=== PATIENT | female | born 1955 | race Caucasian/White ===

== ENCOUNTER → 2016-11-12 | Outpatient (CLI) | payer BC ==
--- NOTE | 2016-11-12 17:16 | Diagnostic Imaging Report ---
Bilateral screening mammogram. The current study was also evaluated with a Computer Aided Detection (CAD) system. INDICATION: Screening. No current complaints stated on the questionnaire. COMPARISON: 05/26/2016. FINDINGS: The breasts are composed of heterogeneously dense parenchyma which may decrease mammographic sensitivity. There are scattered benign-appearing calcifications. There is a 7 mm asymmetry along the superior aspect of the left MLO view. No definite correlate on the CC projection is seen. The right breast demonstrates no definite change. IMPRESSION: Dense breasts. Asymmetry along the upper aspect of the left MLO is seen. Focal compression view evaluation and bilateral ultrasound is recommended. ACR BI-RADS Category 0: Incomplete. (Needs additional imaging evaluation). Result letter will be mailed to the patient. Note: At least 10% of breast cancer is not imaged by mammography. Dictated by: Dictated on workstation # [id number]
== END ==
LOC: RAD 09:19
PROVIDERS: ATTEND Obstetrics & Gynecology Gynecology
DX: Z12.31 Encounter for screening mammogram for malignant neoplasm of breast (principal)
CPT/HCPCS: 77067

== ENCOUNTER → 2016-12-03 | Outpatient (CLI) | payer BC ==
--- NOTE | 2016-12-03 08:48 | Diagnostic Imaging Report ---
Left breast diagnostic mammogram. CAD is utilized. COMPARISON: 11/12/2016. FINDINGS: Focal compression view for asymmetry in the upper aspect of the left breast demonstrates dense background parenchyma with no definitive underlying mass. IMPRESSION: Dense background parenchyma with no definitive underlying lesion seen. Ultrasound evaluation pending. ACR BI-RADS Category 0: Incomplete. (Needs additional imaging evaluation). Result letter will be mailed to the patient. Note: At least 10% of breast cancer is not imaged by mammography. Dictated by: Dictated on workstation # [id number]
--- NOTE | 2016-12-03 10:18 | Diagnostic Imaging Report ---
EXAMINATION: Bilateral breast ultrasound. INDICATION: Dense breasts. Asymmetry in the upper aspect of the left breast. FINDINGS: The retroareolar region and four quadrants of each breast were scanned. At the 3 o'clock zone 2 cm from the nipple, there is a small simple appearing cyst measuring 4 mm without change from the November 2015 exam. There is mild ductal ectasia also seen in the retroareolar region of the left breast. The right breast demonstrates no significant abnormality. IMPRESSION: No suspicious lesion. The asymmetry seen on mammography appears to relate to summation artifact of parenchyma. Annual screening mammography is recommended. ACR BI-RADS Category 2: Benign findings. Dictated by: Dictated on workstation # [id number]
== END ==
LOC: RAD 07:45
PROVIDERS: ATTEND Obstetrics & Gynecology Gynecology
DX: R92.8 Other abnormal and inconclusive findings on diagnostic imaging of breast (principal)

== ENCOUNTER → 2017-12-10 | Outpatient (CLI) | payer BC ==
--- NOTE | 2017-12-10 19:27 | Diagnostic Imaging Report ---
INDICATION: Routine screening. COMPARISON: Comparison is made with prior study from 11/12/2016 and 11/15/2015. TECHNIQUE: 2D and 3D bilateral screening mammography was performed with computer-aided detection (CAD) system. FINDINGS: Both breasts are heterogeneously dense, limiting the sensitivity of mammography. There are innumerable calcifications throughout both breasts. These appear to be fairly similar to prior exam and likely benign. No discrete mass is identified. No definite malignant appearing microcalcifications are seen. The axillae are unremarkable. IMPRESSION: No mammographic features suspicious for malignancy are identified. ACR BI-RADS Category 2: Benign findings. Result letter will be mailed to the patient. Note: At least 10% of breast cancer is not imaged by mammography. Dictated by: Dictated on workstation # [id number]
== END ==
LOC: RAD 14:07
PROVIDERS: ATTEND Obstetrics & Gynecology Gynecology
DX: Z12.31 Encounter for screening mammogram for malignant neoplasm of breast (principal)
CPT/HCPCS: 77067

== ENCOUNTER → 2018-12-13 | Outpatient (CLI) | payer BC | LOC: RAD 14:31 | PROVIDERS: ATTEND Obstetrics & Gynecology Gynecology | DX: Z12.31 Encounter for screening mammogram for malignant neoplasm of breast (principal) | CPT/HCPCS: 77067 ==